=== PATIENT | female | born 1990 | race African-American/Black ===

== ENCOUNTER 2023-05-30 14:08 | Outpatient (REF) | payer OTHER, SELFPAY ==
[2023-05-31 05:21] LABS: CT PCR NOT DETECTED (Not Detect.); NG PCR NOT DETECTED (Not Detect.)
[2023-05-31 15:20] LABS: BV Int Neg Control Negative (Negative); BV Int Pos Control Positive (Positive)
== END 2023-05-30 14:09 | disposition home or self-care (01) ==
LOC: HO.CHCLNP 14:08
PROVIDERS: Visit Provider General Practice
DX: B37.31 Acute candidiasis of vulva and vagina (principal)
CPT/HCPCS: 0353U; 87480; 87510; 87660

== ENCOUNTER 2024-10-31 08:18 | Outpatient (REF) | payer OTHER, SELFPAY ==
[2024-10-31 14:02] LABS: MANUAL DIFF FLAG NO
[2024-10-31 14:05] LABS: Basophils Absolute Auto 0.1 X10*3/uL (0.0-0.2); Basophils Percent Auto 1.1 % (0-2); Eosinophils Absolute Auto 0.1 X10*3/uL (0.0-0.4); Hematocrit 38.2 % (37.0-47.0); Hemoglobin 12.9 g/dl (12.0-16.0); Imm Gran Abs Auto 0.03 X10*3/uL (0.00-0.03); Imm Gran Pct Auto 0.4 % (0.0-0.4); Lymphocytes Absolute Auto 1.8 X10*3/uL (1.2-4.9); Lymphocytes Percent Auto 25.3 % (20-40); Mean Corpuscular HGB Conc 33.8 g/dl (31.0-35.0); Mean Corpuscular Hemoglobin 30.7 pg (27.0-33.0); Mean Platelet Volume 9.4 fL (9.4-12.3); Monocytes Absolute Auto 0.6 X10*3/uL (0.1-1.2); Neutrophils Absolute Auto 4.6 x10*3/uL (2.0-8.3); Neutrophils Percent Auto 64.2 % (45-73); Platelet Count 271 X10*3/uL (160-400); Red Cell Distribution Width 12.6 % (11.0-16.0); White Blood Count 7.2 X10*3/uL (4.8-10.8)
[2024-10-31 14:29] LABS: Alanine Aminotransferase 14 U/L (0-31); Albumin Level 4.1 g/dL (3.5-5.0); Alkaline Phosphatase 41 U/L (39-117); Anion Gap 9 (12-20); Aspartate Amino Transferase 23 U/L (5-31); Bilirubin Total 0.4 mg/dL (0.0-1.0); Blood Urea Nitrogen 9 mg/dL (9-16); C Reactive Protein < 0.04 mg/dL (< or = 0.50); Calcium 8.3 mg/dL (8.4-10.2); Carbon Dioxide 22 mmol/L (22-29); Chloride 110 mmol/L (96-108); Estimated Glomerular Filt Rate > 60; Glucose Random 82 mg/dL (60-115); Potassium 3.8 mmol/L (3.3-5.1); Sodium 137 mmol/L (135-145); Total Protein 6.9 g/dL (6.5-8.0)
[2024-10-31 14:43] LABS: Erythrocyte Sedimentation Rate 4 MM/HR (0-20)
[2024-10-31 14:45] LABS: TSH reflex Free T4 0.41 uIU/mL (0.32-4.0)
[2024-11-05 12:33] LABS: Anti Nuclear Antibody Screen POSITIVE (NEGATIVE)
== END 2024-10-31 08:19 | disposition home or self-care (01) ==
LOC: HO.CHCLDS 08:18
PROVIDERS: Visit Provider Internal Medicine
DX: R25.2 Cramp and spasm (principal)
CPT/HCPCS: 36415; 80053; 82550; 84443; 85025; 85652; 86038; 86039; 86140

== ENCOUNTER 2024-12-11 09:25 | Outpatient (REF) | payer OTHER, SELFPAY ==
--- OUTSIDE RECORDS SUMMARY | 2024-12-11 10:12 | XMS_ITS | Clinical Summary ---
Author Organization [facility] ity Address [id number] [place] [id number] Care Team Providers Care Rn Admit Name Role Phone Matilda Echols MD Primary Care Provider [phone] Social History Tobacco Use Types Packs/Day Years Used Date Smoking Tobacco: Never Assessed Comments Unknown Sex and Gender Information Value Date Recorded Sex Assigned at Not on file Legal Sex Female 4:38 AM EST Gender Identity Not on file Sexual Orientation Not on file Plan of Treatment Health Maintenance Due Date Last Done Comments Cervical Cancer Screening: Pap Smear 2010 COVID-19 Vaccine ( season) 2024 Influenza Vaccine (#1) 2024 DTaP,Tdap,and Td Vaccines (8 - Td or Tdap) 11/23/2027 11/23/2017, 11/06/2000, 04/21/1999, Additional history exists HIB Vaccines Completed 03/22/1991 IPV Vaccines Completed 04/21/1994, 10/1990, 03/22/1991, Additional history exists Hepatitis B Vaccines Completed 08/30/2000, 06/22/1998, 04/21/1997, Additional history exists MMR Vaccines Completed 11/06/2000, 03/22/1991 HPV Vaccines Completed 07/13/2008, 02/20, 01/07/2008 Varicella Vaccines Aged Out 05/06/2012 No longer eligible based on patient's age to complete this topic Hepatitis A Vaccines Aged Out No long er eligible based on patient's age to complete this topic Meningococcal ACWY Vaccine Aged Out N o longer eligible based on patient's age to complete this topic Meningococcal B Vacine Aged Out No lo nger eligible based on patient's age to complete this topic Pneumococcal Vaccine: Pediatrics (0 to 5 Years) and At-Risk Patients (6 to 64 Years) Aged Out No longer eligible based on patient's age to complete this topic RSV Immunization Patients Under 20 months Aged Out No longer eligible based on patient's age to complete this topic Care Teams Rn Admit Relationship Specialty Start Date End Date Matilda Echols MD [address] [place] [address] PCP - General Internal Medicine 10/11/15
--- OUTSIDE RECORDS SUMMARY | 2024-12-11 10:12 | XMS_ITS | Encounter Summary ---
Author Organization [facility] Address [facility] [place] [address] Care Team Providers Care Verification Engineer Name Role Phone Matilda Echols MD Primary Care Provider [phone] Encounter Details Date Type Department Care Team Description 11/23/2015 Linen Worker Report Medical Records [address] [place] [address] Cirilo Stephens MD Social History Tobacco Use Types Packs/Day Years Used Date Smoking Tobacco: Never Alcohol Use Standard Drinks/Week Comments Not Asked 0 (1 standard drink = 0.6 oz pur e alcohol) Sex Assigned at Date Recorded Not on file documented as of this encounter Plan of Treatment Not on file documented as of this encounter Visit Diagnoses Not on filedocumented in this encounter Care Teams Verification Engineer Relationship Specialty Start Date End Date Matilda Echols MD [address] [place] [phone] PCP - General Internal Medicine 10/11/15 documented as of this encounter
--- OUTSIDE RECORDS SUMMARY | 2024-12-11 10:12 | XMS_ITS | Encounter Summary ---
Author Organization [facility] Address [address] [place] [address] 7t [place] [address] Care Team Providers Care Manager Manufacturing Name Role Phone Hilda Porter MD Primary Care Provider [phone] Encounter Details Date Type Department Care Team ([facility] st Contact Info) Description 11/12/2024 Orders Only [facility] [address] [place], [place] [phone] Hilda Porter MD [address] [place] [address] Social History Tobacco Use Types Packs/Day Years Used Date Smoking Tobacco: Never Passive Smoke Exposure: Never Smokeless Tobacco: Never Comments Unknown Sex and Gender Information Value Date Recorded Sex Assigned at Female 08/21/2022 10:15 AM EDT Legal Sex Female 10:15 AM EDT Gender Identity Female 08/21/2022 10:15 AM EDT Sexual Orientation Straight 08/21/2022 10 :15 AM EDT documented as of this encounter Plan of Treatment Not on file documented as of this encounter Visit Diagnoses Not on filedocumented in this encounter Care Teams Manager Manufacturing Relationship Specialty Start Date End Date Hilda Porter MD [address] [place] [address] PCP - General Family Medicine 04/17/16 documented as of this encounter
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
--- OUTSIDE RECORDS SUMMARY | 2024-12-11 10:12 | XMS_ITS | Encounter Summary ---
Author Organization [email or web address] Address [address] [facility] 7[address] [place] [address] Care Team Providers Care Key Cutter Name Role Phone Hilda Porter MD Primary Care Provider [phone] Encounter Details Date Type Department Care Team (Latest Contact Info) Description 12/11/2024 Travel Social History Tobacco Use Types Packs/Day Years Used Date Smoking Tobacco: Never Passive Smoke Exposure: Never Smokeless Tobacco: Never Depression Answer Date Recorded Patient Health Questionnaire-9 Score 0 12/11/2024 Patient Health Questionnaire-9 Score 0 12/11/2024 Last PHQ-9: Questionnaire Data Not on file 0 12/11/2024 Housing Stability Answer Date Recorded What is your housing situation today? I have jalen hess 11/27/[address] you li ve. Do you have problems with any of the following? None of the above 11/27/2024 Food Insecurity Answer Date Recorded Within the past 12 months, y ou worried that your food would run out before you got money to buy more: Never True 11/27/2024 Within the past 12 months,th e food you bought just didn't last and you didn't have enough money to get more: Never True 03/2025 Transportation Answer Date Recorded In the past 12 months, has l ack of transportation kept you from medical appts, meetings, work or from getting things needed for daily living? No 11/27/2024 Utilities Answer Date Recorded In the past 12 months, has t he electric, gas, oil or water company threatened to shut off services in your home? No 11/27/2024 Depression Answer Date Recorded Patient Health Questionnaire-2 Score 0 12/11/2024 Internet Access Answer Date Recorded Internet Access Q1 Yes 11/27/2024 Internet Access Q2 Not on file 11/27/2024 Comments Unknown Sex and Gender Information Value Date Recorded Sex Assigned at Female 08/21/2022 10:15 AM EDT Legal Sex Female 10:15 AM EDT Gender Identity Female 08/21/2022 10:15 AM EDT Sexual Orientation Straight 08/21/2022 10 :15 AM EDT documented as of this encounter Plan of Treatment Not on file documented as of this encounter Visit Diagnoses Not on filedocumented in this encounter Additional Health Concerns Assessment Noted Time PHQ-9 Depression Total Score: 0 12/11/19 25 8:59 AM EST documented as of this encounter Care Teams Key Cutter Relationship Specialty Start Date End Date Hilda Porter MD [address] [place] [phone] PCP - General Family Medicine 04/17/16 documented as of this encounter
--- OUTSIDE RECORDS SUMMARY | 2024-12-11 10:12 | XMS_ITS | Encounter Summary ---
Author Organization [facility] Address [address] [place] [address] 7t [place] [address] Care Team Providers Care Fisheries Officer Name Role Phone Hilda Porter MD Primary Care Provider [phone] Reason for Visit * Reason Onset Date Comments Referral 11/11/2024 Encounter Details Date Type Department Care Team ([facility] st Contact Info) Description 11/11/2024 Telephone [facility] [address] [place] [address] Hilda Porter MD [address] [place] [address] Referral Social History Tobacco Use Types Packs/Day Years Used Date Smoking Tobacco: Never Passive Smoke Exposure: Never Smokeless Tobacco: Never Comments Unknown Sex and Gender Information Value Date Recorded Sex Assigned at Female 08/21/2022 10:15 AM EDT Legal Sex Female 10:15 AM EDT Gender Identity Female 08/21/2022 10:15 AM EDT Sexual Orientation Straight 08/21/2022 10 :15 AM EDT documented as of this encounter Miscellaneous Notes * Telephone Encounter - Hilda Porter MD - 11/13/2024 11:45 AM EST Referred * Telephone Encounter - Camelia Souza - 11/12/2024 8:58 AM EST Rheumatology referral cancelled due to patient needing to be referred to a neurologist. Please sendneurology referral. Thank you. * Telephone Encounter - Ara Lealstephanie Alonso - 11/11/2024 2:53 PM EST Tc from pt stating facility she was referral called her to let her know need Neurologist referral. Any questions contact pt. [phone] documented in this encounter Plan of Treatment Not on file documented as of this encounter Visit Diagnoses Not on filedocumented in this encounter Care Teams Fisheries Officer Relationship Specialty Start Date End Date Hilda Porter MD [address] [place] [address] PCP - General Family Medicine 04/17/16 documented as of this encounter
--- OUTSIDE RECORDS SUMMARY | 2024-12-11 10:12 | XMS_ITS | Encounter Summary ---
Author Organization [facility] Address [facility] [place] [address] Care Team Providers Care Resident Caregiver Name Role Phone Matilda Echols MD Primary Care Provider [phone] Encounter Details Date Type Department Care Team Description 02/16/2018 Transfer Records Medical Records [address] [place] [id number] Abstract, Provider Social History Tobacco Use Types Packs/Day Years [...] on filedocumented in this encounter Care Teams Resident Caregiver Relationship Specialty Start Date End Date Matilda Echols MD [address] [place] [address] PCP - General Internal Medicine 10/11/15 documented as of this encounter
--- OUTSIDE RECORDS SUMMARY | 2024-12-11 10:12 | XMS_ITS | Encounter Summary ---
Author Organization [employer] Address [address] [facility] 7t [place] [address] Care Team Providers Care Plc Technician Name Role Phone Hilda Porter MD Primary Care Provider Reason for Visit * Reason Comments Pre-visit Planning SDOH screening negat dora and tobacco screening negative Encounter Details Date Type Department Care Team ([facility] st Contact Info) Description 11/27/2024 Patient Outreach [facility] [address] [place] [address] Hilda Porter MD [address] [place] [address] Pre-visit Planning (SDOH screening negative and tobacco screening negative) Social History Tobacco Use Types Packs/Day Years Used Date Smoking Tobacco: Never Passive Smoke Exposure: Never Smokeless Tobacco: Never Housing Stability Answer Date Recorded What is [...] off services in your home? No 11/27/2024 Internet Access Answer Date Recorded Internet Access Q1 Yes 11/27/2024 Internet Access Q2 Not on file 11/27/2024 Comments Unknown Sex and Gender Information Value Date Recorded Sex Assigned at Female 08/21/2022 10:15 AM EDT Legal Sex Female 10:15 AM EDT Gender Identity Female 08/21/2022 10:15 AM EDT Sexual Orientation Straight 08/21/2022 10 :15 AM EDT documented as of this encounter Progress Notes * Allison Frank - 11/27/2024 10:12 AM EST CC Allison placed successful outbound call to patient for pre-visit planning. Patient name and confirmed. Patient confirms appt date and time, and has transportation. Biggest concern for appointment at this time is none Patient advised to bring to appointment a photo id and insurance card. Appropriate screenings completed in anticipation of appointment. documented in this encounter Plan of Treatment Not on file documented as of this encounter Visit Diagnoses Not on filedocumented in this encounter Care Teams Plc Technician Relationship Specialty Start Date End Date Hilda Porter MD [address] [place] [id number] PCP - General Family Medicine 04/17/16 documented as of this encounter
--- OUTSIDE RECORDS SUMMARY | 2024-12-11 10:12 | XMS_ITS | Encounter Summary ---
Author Organization [employer] Address [address] [place] [address] 7[address] [place] [address] Care Team Providers Care Tile Layer Name Role Phone Hilda Porter MD Primary Care Provider [phone] Reason for Visit * Reason Onset Date Comments Results 11/11/2024 Encounter Details Date Type Department Care Team ([facility] st Contact Info) Description 11/11/2024 Telephone [facility] MED & PEDS [address] [place] [address] Senait Clarke RN Results Social History Tobacco Use Types Packs/Day Years [...] Encounter - Hilda Porter MD - 11/13/2024 11:46 AM EST Pt also has Positive ELIZ .Hence needs to be seen by Coffee Shop Aide * Telephone Encounter - Senait Clarke RN - 11/11/2024 1:26 PM EST TC placed to pt to advise of positive ELIZ blood work results below. Pt informed that referral placed to rheumatology had been placed due to these findings and the arthritis treatment center will be calling with an appt date and time. Pt stated understanding and had no further questions or concerns.While on the call the pt asked for a refill on the Ibuprofen 800 MG tablet. Prescription inA2023 and pt will need a new one place. ----- Message from Irais Turner MD sent at 11/06/2024 5:08 PM EST ----- Please inform Nancie that I have just seen her blood test results. Her ELIZ test was positive at afairly high level, so her symptoms might be due to an autoimmune condition. I am referring her to arheumatologist, a doctor who specializes in evaluating people who may have autoimmune conditions. * Telephone Encounter - Jessica Frank - 11/11/2024 12:47 PM EST Tc from pt returning call. * Telephone Encounter - Senait Clarke RN - 11/11/2024 9:12 AM EST TC placed to pt and LVM to call back the office in regards to result message below ----- Message from Irais Turner MD sent at 11/06/2024 5:08 PM EST ----- Please inform Nancie that I have just seen her blood test results. Her ELIZ test was positive at afairly high level, so her symptoms might be due to an autoimmune condition. I am referring her to arheumatologist, a doctor who specializes in evaluating people who may have autoimmune conditions. documented in this encounter Plan of Treatment Not on file documented as of this encounter Visit Diagnoses Not on filedocumented in this encounter Care Teams Tile Layer Relationship Specialty Start Date End Date Hilda Porter MD [address] [place] [phone] PCP - General Family Medicine 04/17/16 documented as of this encounter
--- OUTSIDE RECORDS SUMMARY | 2024-12-11 10:12 | XMS_ITS | Encounter Summary ---
Author Organization [employer] Address [address] [place] [address] 7t [place] [address] Care Team Providers Care Felt Machine Mechanic Name Role Phone Hilda Porter MD Primary Care Provider [phone] Reason for Visit * Reason Comments Annual Exam Encounter Details Date Type Department Care Team ([facility] st Contact Info) Description 12/11/2024 9:00 AM EST Office Visit [facility] MED & PEDS [address] [place], [place] [phone] Hilda Porter MD [address] [place] [address] ELIZ positive (Primary Dx); Screen for STD (sexually transmitted disease); Encounter for annual wellness visit Social History Tobacco Use Types Packs/Day Years [...] AM EDT documented as of this encounter Last Filed Vital Signs Vital Sign Reading Time Taken Comments Blood Pressure 118/73 12/11/2024 8:58 AM EST Pulse 82 12/11/2024 8:58 AM EST Temperature 36.4 ??C (97.6 ??F) 12/11/2024 8:58 AM ES T Respiratory Rate 20 12/11/2024 8:58 AM EST Oxygen Saturation 98% 12/11/2024 8:58 AM EST Inhaled Oxygen Concentration - - Weight 57.5 kg (126 lb 12.8 oz) 12/11/2024 8:58 AM EST Height 162.6 cm (5' 4 ) 12/11/2024 8:58 AM EST Body Mass Index 21.77 12/11/2024 8:58 AM EST documented in this encounter Progress Notes * Hilda Porter MD - 12/11/2024 9:00 AM EST Subjective Patient ID: Nancie Romero is a 34 y.o. female who presents for Annual Exam. Well Adult Physical Patient here for a comprehensive physical exam.The patient reports no problems Do you take any herbs or supplements that were not prescribed by a doctor? no Are you taking calcium supplements? no Are you taking aspirin daily? no Arthritis Presents for follow-up visit. She complains of pain. The symptoms have been stable. Affected locations include the right knee. Her pain is at a severity of 4/10. Review of Systems Constitutional: Negative. Respiratory: Negative. Negative for shortness of breath. Cardiovascular: Negative for chest pain and palpitations. Gastrointestinal: Negative. Genitourinary: Negative. Musculoskeletal: Positive for arthritis. Negative for neck pain. Neurological: Negative for headaches. Objective Physical Exam Constitutional: Appearance: Normal appearance. HENT: Head: Normocephalic and atraumatic. Right Ear: Tympanic membrane normal. Left Ear: Tympanic membrane normal. Mouth/Throat: Mouth: Mucous membranes are moist. Eyes: Pupils: Pupils are equal, round, and reactive to light. Cardiovascular: Rate and Rhythm: Normal rate and regular rhythm. Pulmonary: Effort: Pulmonary effort is normal. Breath sounds: Normal breath sounds. Abdominal: General: Abdomen is flat. Palpations: Abdomen is soft. Musculoskeletal: General: Normal range of motion. Skin: General: Skin is warm. Neurological: General: No focal deficit present. Mental Status: She is alert. Psychiatric: Mood and Affect: Mood normal. Behavior: Behavior normal. Assessment/Plan Diagnoses and all orders for this visit: ELIZ positive Comments: awaiting Rheum consult Advised daily Vit D and Turmeric Advised to stay active Orders: - Rheumatoid Factor; Future - Vitamin D, 25-Hydroxy, Total, Immunoassay; Future Screen for STD (sexually transmitted disease) - Hepatitis C Antibody with Reflex to HCV, RNA, Quantitative, Real-Time PCR; Future - HIV-1/2 Antigen and Antibodies, Fourth Generation, with Reflexes; Future Encounter for annual wellness visit Other orders - polyethylene glycol, PEG, 3350 (MiraLax) 17 GM/SCOOP powder; Take 17 g by mouth Once per day for 3 days. - ibuprofen 800 MG tablet; Take 1 tablet (800 mg) by mouth with breakfast and with evening meal. documented in this encounter Plan of Treatment Scheduled Orders Name Type Priority Associated Diagnoses Orde r Schedule Rheumatoid Factor Lab Routine ELIZ positive Expected: 12/11/2024, Expires: 12/11/2025 Hepatitis C Antibody with Reflex to HCV, RNA, Quantitative, Real-Time PCR Lab Routine Screen for STD (sexually transmitted disease) Expected: 12/11/2024, Expires: 12/11/2025 HIV-1/2 Antigen and Antibodies, Fourth Generation, with Reflexes Lab Routine Screen for STD (sexually transmitted disease) Expected: 12/11/2024 (Approximate), Expires: 12/11/2025 Vitamin D, 25-Hydroxy, Total, Immunoassay Lab Routine ELIZ positive Expected: 12/11/2024 (Approximate), Expires: 12/11/2025 documented as of this encounter Visit Diagnoses Diagnosis ELIZ positive- Primary Screen for STD (sexually transmitted disease) Screening examination for venereal disease Encounter for annual wellness visit documented in this encounter Additional Health Concerns Assessment Noted Time PHQ-9 Depression Total Score: 0 12/11/19 25 8:59 AM EST documented as of this encounter Care Teams Felt Machine Mechanic Relationship Specialty Start Date End Date Hilda Porter MD [address] [place] [phone] PCP - General Family Medicine 04/17/16 documented as of this encounter
--- OUTSIDE RECORDS SUMMARY | 2024-12-11 10:12 | XMS_ITS | Encounter Summary ---
Author Organization [employer] Address [address] [place] [address] [address] [place] [address] Care Team Providers Care Drag Seiner Name Role Phone Hilda Porter MD Primary Care Provider [phone] Reason for Visit * Reason Onset Date Comments Medication Question 11/12/2024 Encounter Details Date Type Department Care Team ([facility] Contact Info) Description 11/12/2024 Telephone [facility] CH[facility] MED & PEDS [address] [place], [place] [phone] Hilda Porter MD [address] [place] [address] Medication Question Social History Tobacco Use Types Packs/Day Years [...] encounter Miscellaneous Notes * Telephone Encounter - Denise Anderson RN - 11/13/2024 12:17 PM EST T/C to pt. Advised that pcp placed referral and sent rx for pre-jean vitamins as requested. * Telephone Encounter - Hilda Porter MD - 11/13/2024 11:44 AM EST Sent * Telephone Encounter - Denise Anderson RN - 11/13/2024 11:37 AM EST T/C returned to pt. Pt states she is not trying to get . Reports that she received a reportthat something is wrong is with her bones. Pt requesting a rx for pre-jean vitamins as she heard that this was best for women. Advised pt pre-jean vitamins are available OTC and that request will be sent to pcp for review. * Telephone Encounter - Jessica Frank - 11/12/2024 12:25 PM EST Tc from pt requesting to see if pcp can prescribe vitamin. Pt would prefer vitamins. Any questions please contact pt . documented in this encounter Plan of Treatment Not on file documented as of this encounter Visit Diagnoses Not on filedocumented in this encounter Care Teams Drag Seiner Relationship Specialty Start Date End Date Hilda Porter MD [address] [place] [phone] PCP - General Family Medicine 04/17/16 documented as of this encounter
--- OUTSIDE RECORDS SUMMARY | 2024-12-11 10:13 | XMS_ITS | Encounter Summary ---
Author Organization [employer] Address [address] [place] [address] 7t [place] [address] Care Team Providers Care Media Planner / Buyer Name Role Phone Hilda Porter MD Primary Care Provider [phone] Encounter Details Date Type Department Care Team ([facility] st Contact Info) Description 11/13/2024 Orders Only [facility] CHC MED & PEDS [address] [place], [place] [phone] Hilda Porter MD [address] [place] [address] Social History Tobacco Use Types Packs/Day Years [...] on filedocumented in this encounter Care Teams Media Planner / Buyer Relationship Specialty Start Date End Date Hilda Porter MD [address] [place] [phone] PCP - General Family Medicine 04/17/16 documented as of this encounter
--- OUTSIDE RECORDS SUMMARY | 2024-12-11 10:13 | XMS_ITS | Clinical Summary ---
Author Organization [employer] Address [address] [place] [address] 7t [place] [address] Care Team Providers Care Logging Truck Driver Name Role Phone Hilda Porter MD Primary Care Provider [phone] Allergies No known active allergies Medications multivitamin () 27-0.8 MG tablet Take 1 tablet by mouth Once per day. 30 tablet 3 11/13/19 25 Active polyethylene glycol, PEG, 3350 (MiraLax) 17 GM/SCOOP powder Take 17 g by mouth Once per day for 3 days. 527 g 2 12/11/19 25 025 Active ibuprofen 800 MG tablet Take 1 tablet (800 mg) by mouth with breakfast and with evening meal. 60 tablet 2 12/11/19 25 Active ibuprofen 800 MG tablet TAKE ONE TABLET BY MOUTH TWICE DAILY WITH FOOD 60 tablet 2 05/31/20 23 025 Discontinued(Re order (will not trigger notification to Pharmacy)) ibuprofen 800 MG tablet Take 1 tablet (800 mg) by mouth with breakfast and with evening meal. 60 tablet 2 11/12/19 25 025 Discontinued(Re order (will not trigger notification to Pharmacy)) Active Problems No known active problems Encounters Date Type Department Care Team Description 12/11/2024 9:00 AM EST Office Visit [facility] CHC MED & PEDS [address] [place], [place] [phone] Hilda Porter MD ELIZ positive (Primary Dx); Screen for STD (sexually transmitted disease); Encounter for annual wellness visit 12/11/2024 Travel 11/27/2024 Patient Outreach [facility] MEDICINE [address] [place], [place] [phone] Hilda Porter MD Pre-visit Planning (SDOH screening negative and tobacco screening negative) 11/13/2024 Orders Only [facility] CHC MED & PEDS [address] [place] [address] Hilda Porter MD Positive ELIZ (antinuclear antibody) (Primary Dx) 11/13/2024 Orders Only [facility] MED & PEDS [address] [place] [address] Hilda Porter MD Weakness of both lower extremities (Primary Dx) 11/13/2024 Orders Only [facility] MED & PEDS [address] [place] [address] Hilda Porter MD 11/12/2024 Telephone [facility] MED & PEDS [address] [place] [address] Hilda Porter MD Medication Question 11/12/2024 Orders Only [facility] MED & PEDS [address] [place] [address] Hilda Porter MD 11/11/[address] [address] Hilda Porter MD Referral 11/11/2024 Telephone [facility] MED & PEDS [address] [place] [address] Senait Clarke, JOANA Results 11/06/2024 Orders Only [facility] [address] [place] [address] Irais Turner MD Weakness of both lower extremities (Primary Dx) 11/04/[address] [address] Hilda Porter MD Results 10/30/2024 3:20 PM EST Office Visit [facility] MED & PEDS [address] [place] [address] Irais Turner MD Muscle cramps (Primary Dx); Weakness of both lower extremities 10/30/2024 Travel 10/30/[address] [address] Hilda Porter MD Nurse Triage from Last 3 Months Social History Tobacco Use Types Packs/Day Years Used Date Smoking Tobacco: Never Passive Smoke Exposure: Never Smokeless Tobacco: Never Tobacco Cessation:Counseling Given: Not Answered Depression Answer Date Recorded Patient Health Questionnaire-9 [...] Orientation Straight 08/21/2022 10 :15 AM EDT Last Filed Vital Signs Vital Sign Reading [...] Mass Index 21.77 12/11/2024 8:58 AM EST Plan of Treatment Health Maintenance Due Date Last Done Comments HIV Screening 1989 Family Planning (PISQ) 2004 Hepatitis C Screening 2007 Influenza Vaccine (#1) 2025 09/06/2020 Postp oned from 06/22/2024 (Patient Refused) Pap Smear 05/02/2025 05/02/2022 Tobacco Screening 10/30/2025 10/30/2024 SDOH Screening 11/27/2025 11/27/2024 Alcohol/Substance Use Screening 12/11/2025 12/11/2024 COVID-19 Vaccine ( season) 2025 03/30/2021, 02/19/2021 Postponed from 06/22/2024 (Patient Refused) Depression Screening 12/11/2025 12/11/2024, 12/11/19 Cervical Cancer Screening 05/02/2027 HPV/Cotest 05/02/2027 05/02/2022 DTaP/Tdap/Td Vaccines (7 - Td or Tdap) 11/23/2027 11/23/2017, 03/10/2015, 03/10/2015, Additional history exists Zoster Vaccines (1 of 2) 2039 RSV Patients and Patients Aged 60 years or older (1 - 1-dose 75+ series) 2064 HIB Vaccines Completed 03/22/1991, 03/22/1991 IPV Vaccines Completed 04/21/1994, 0710/1993, 03/22/1991, Additional history exists Hepatitis B Vaccines Completed 08/30/2000, 08/30/2000, 06/22/1998, Additional history exists HPV Vaccines Completed 07/13/2008, 02/20, 01/07/2008 Hepatitis A Vaccines Aged Out No long er eligible based on patient's age to complete this topic Meningococcal Vaccine Aged Out No torres elvie eligible based on patient's age to complete this topic Pneumococcal Vaccine: Pediatrics (0 to 5 Years) and At-Risk Patients (6 to 49) Years) Aged Out No longer eligible based on patient's age to complete this topic RSV under 20 months Aged Out No longe r eligible based on patient's age to complete this topic Rotavirus Vaccines Aged Out No longer eligible based on patient's age to complete this topic Procedures Procedure Name Priority Date/Time Associated Diagnosis Comments CREATINE KINASE, TOTAL Routine 8:20 AM EST Muscle cramps ELIZ SCREEN, IFA, W/REFL TITER AND PATTERN Routine 10/31/2024 8:20 AM EST Muscle cramps C-REACTIVE PROTEIN Routine 10/31/2024 8: 20 AM EST Muscle cramps SED RATE BY MODIFIED WESTERGREN Routine 10/31/2024 8:20 AM EST Muscle cramps TSH W/REFLEX TO FT4 Routine 10/31/2024 8 :20 AM EST Muscle cramps COMPREHENSIVE METABOLIC PANEL Routine 10/31/2024 8:20 AM EST Muscle cramps CBC WITH AUTO DIFFERENTIAL Routine 10/31/2024 8:20 AM EST Muscle cramps THINPREP IMAGING PAP AND HPV MRNA E6/E7, WITH CT/NG, TRICHOMONAS Routine 05/02/2022 11:12 AM EDT from Last 3 Months or Most Recently Relevant to Health Maintenance Results * TSH W/Reflex to FT4 (10/31/2024 8:20 AM EST) TSH reflex Free T4 0.41 0.32 - 4.0 uIU/mL [facility] Blood Venous blood specimen / Unknown 10/31/2024 8:20 AM EST 10/31/2024 1:59 PM EST us Irais Turner MD LAB BLOOD ORDERABLES Final Re sult [facility] [address] [place] [phone] * CBC auto differential (10/31/2024 8:20 AM EST) White Blood Count 7.2 4.8 - 10.8 X10*3/uL [facility] Red Blood Count 4.20 4.20 - 5.50 X10*6/uL [facility] Hemoglobin 12.9 12.0 - 16.0 g/dl [facility] Hematocrit 38.2 37.0 - 47.0 % [facility] Mean Corpuscular Volume 91.0 80.0 - 98.0 fL [facility] Mean Corpuscular Hemoglobin 30.7 27.0 - 33.0 pg [facility] Mean Corpuscular HGB Conc 33.8 31.0 - 35.0 g/dl [facility] Red Cell Distribution Width 12.6 11.0 - 16.0 % [facility] Platelet Count 271 160 - 400 X10*3/uL [facility] Mean Platelet Volume 9.4 9.4 - 12.3 fL [facility] Neutrophils Percent Auto 64.2 45 - 73 % [facility] Imm Gran Pct Auto 0.4 0.0 - 0.4 % [facility] Lymphocytes Percent Auto 25.3 20 - 40 % [facility] Monocytes Percent Auto 8.0 2 - 11 % [facility] Eosinophils Percent Auto 1.0 0 - 4 % [facility] Basophils Percent Auto 1.1 0 - 2 % [facility] NRBC Pct Auto 0.0 0.0 - 0.2 /100WBC [facility] Neutrophils Absolute Auto 4.6 2.0 - 8.3 x10*3/uL [facility] Imm Gran Abs Auto 0.03 0.00 - 0.03 X10*3/uL [facility] Lymphocytes Absolute Auto 1.8 1.2 - 4.9 X10*3/uL [facility] Monocytes Absolute Auto 0.6 0.1 - 1.2 X10*3/uL [facility] Eosinophils Absolute Auto 0.1 0.0 - 0.4 X10*3/uL [facility] Basophils Absolute Auto 0.1 0.0 - 0.2 X10*3/uL [facility] NRBC Abs Auto 0.000 0.0 - 0.012 X10*3/uL [facility] Blood Venous blood specimen / Unknown 10/31/2024 8:20 AM EST 10/31/2024 1:59 PM EST us Irais Turner MD LAB BLOOD ORDERABLES Final Re sult [facility] [address] [place] [address] [phone] * Sed Rate by Modified Estrellitaren (10/31/2024 8:20 AM EST) Erythrocyte Sedimentation Rate 4 0 - 20 MM/HR [facility] Comment:Patients with polycy themia and many hemoglobin abnormalitiesmay have depressed sed rates whereas patients with anemiamay have elevated sed rates. Blood Venous blood specimen / Unknown 10/31/2024 8:20 AM EST 10/31/2024 1:59 PM EST us Irais Turner MD LAB BLOOD ORDERABLES Final Re sult Performing Organization Address [facility]/ZIP Co de Phone Number [facility] [address] [place] [address] [phone] * C-reactive Protein (10/31/2024 8:20 AM EST) C Reactive Protein <0.04 < or = 0.50 mg/dL [facility] Blood Venous blood specimen / Unknown 10/31/2024 8:20 AM EST 10/31/2024 1:59 PM EST us Irais Turner MD LAB BLOOD ORDERABLES Final Re sult [facility] [address] [place] [phone] * (ABNORMAL) ELIZ Screen,IFA, with Reflex to Titer and Pattern (10/31/2024 8:20 AM EST) Anti Nuclear Antibody Screen POSITIVE (A) NEGATIVE [facility] Comment:ELIZ IFA is a first l ine screen for detecting thepresence of up to approximately 150 autoantibodies invarious autoimmune diseases. A positive ELIZ IFA resultis suggestive of autoimmune disease and reflexes totiter and pattern. Further laboratory testing may beconsidered if clinically indicated.For additional information, please refer tohttp://education.159.com/faq/ATP770(This link is being provided for informational/educational purposes only.) ELIZ Titer 1:160(A) titer [facility] Comment:Reference Range <1:4 0 Negative 1:40-1:80 Low Antibody Level >1:80 Elevated Antibody Level ELIZ Pattern (A) [facility] Comment:Nuclear, Dense Fine Speckled Abnormal Flag: ADense fine speckled pattern is seen in normalindividuals and rarely associated with systemic lupuserythematosis (SLE), Sjogren's syndrome and systemicsclerosis.AC-2: Dense Fine SpeckledInternational Consensus on ELIZ Patterns(https://doi.org/10.1515/gzgf-4047-5891)THIS TEST WAS PERFORMED AT:[facility] [place] [phone] PEOPLES MD ELIZ TITER 2 (REF LAB) [facility] ELIZ Pattern 2 [facility] ELIZ TITER 3 [facility] ELIZ PATTERN 3 [facility] Blood Venous blood specimen / Unknown 10/31/2024 8:20 AM EST 10/31/2024 1:59 PM EST us Irais Turner MD LAB BLOOD ORDERABLES Final Re sult [facility] [address] [place] [phone] [phone] * Creatine Kinase, Total (10/31/2024 8:20 AM EST) Creatine Kinase Total 83 26 - 140 U/L [facility] Blood Venous blood specimen / Unknown 10/31/2024 8:20 AM EST 10/31/2024 1:59 PM EST us Irais Turner MD LAB BLOOD ORDERABLES Final Re sult [facility] [address] [place] [phone] * (ABNORMAL) Comprehensive Metabolic Panel (10/31/2024 8:20 AM EST) Sodium 137 135 - 145 mmol/L [facility] Potassium 3.8 3.3 - 5.1 mmol/L [facility] Chloride 110(H) 96 - 108 mmol/L [facility] Carbon Dioxide 22 22 - 29 mmol/L [facility] Anion Gap 9(L) 12 - 20 [facility] Urea Nitrogen (BUN) 9 9 - 16 mg/dL [facility] Creatinine, Serum 0.75 0.5 - 1.4 mg/dL [facility] Estimated Glomerular Filt Rate >60 [facility] Comment:Chronic Kidney Disea se: Estimated GFR < 60 mL/min/1.78d5Jicicp Kidney Disease: Estimated GFR < 15 mL/min/1.73m2 Glucose 82 60 - 115 mg/dL [facility] Calcium 8.3(L) 8.4 - 10.2 mg/dL [facility] Bilirubin, Total 0.4 0.0 - 1.0 mg/dL [facility] Aspartate Amino Transferase 23 5 - 31 U/L [facility] Alanine Aminotransferase 14 0 - 31 U/L [facility] Total Protein 6.9 6.5 - 8.0 g/dL [facility] Albumin Level 4.1 3.5 - 5.0 g/dL [facility] Alkaline Phosphatase 41 39 - 117 U/L [facility] Blood Venous blood specimen / Unknown 10/31/2024 8:20 AM EST 10/31/2024 1:59 PM EST us Irais Turner MD LAB BLOOD ORDERABLES Final Re sult [facility] [address] [place] [phone] [phone] * THINPREP TIS PAP AND HPV mRNA E6/E7, CT/NG, TRICH (05/02/2022 11:12 AM EDT) Chlamydia trachomatis RNA, TMA, Urogenital NOT DETECTED NOT DETECTED [facility] Clinical Information: None given [facility] COMMENT SEE COMMENT [facility] Comment: The analytical performance characteristics of this assay, when used to test SurePath(TM) specimens have been determined by [email or web address]. The modifications have not been cleared or approved by the FDA. This assay has been validated pursuant to the CLIA regulations and is used for clinical purposes. ?? For additional information, please refer to https://education.[employer] (InsideTracker)/faq/YPT133 (This link is being provided for information/ educational purposes only.) ?? COMMENT SEE COMMENT [facility] Comment: EXPLANATORY NOTE: ? The Pap is a screening test for cervical cancer. It is ?? not a diagnostic test and is subject to false negative ?? and false positive results. It is most reliable when a ?? satisfactory sample, regularly obtained, is submitted ?? with relevant clinical findings and history, and when ?? the Pap result is evaluated along with historic and ?? current clinical information. ?? COMMENT: This Pap test has been evaluated with computer assisted technology. [facility] Behavioral Health Counselor: SEE COMMENT [facility] Comment: WAC, CT(ASCP) CT screening location: [address] ??[id number] HPV nRNA E6/E7 Not Detected Not Detected [facility] Comment: Methodology: Endocrinologist-Mediated Amplification This assay detects E6/E7 viral messenger RNA (mRNA) from 14 high-risk HPV types (16,18,31,33,35,39,45,51,52,56,58,59,66,68). ? Cervical sources are required for HPV testing. If a vaginal source from a patient who has had a total hysterectomy with removal of cervix was ?? submitted, please contact the testing laboratory for alternative testing options. ?? For additional information, please refer to http://Plan A Dr[employer] (InsideTracker)/faq/VPV967p7 (This link if provided for information/ educational purposes only.) Interpretation/Re sult: Negative for intraepithelial lesion or malignancy. [facility] LMP: 04/21/22 [facility] Neisseria gonorrhoeae RNA, TMA, Urogenital NOT DETECTED NOT DETECTED [facility] Prev. BX: NONE GIVEN [facility] Prev. PAP: NONE GIVEN [facility] SOURCE: None given [facility] Statement Of Adequacy: SEE COMMENT [facility] Comment: Satisfactory for evaluation. Endocervical/transformation zone component present. Trichomonas vaginalis, QL, TMA, PAP Vial NOT DETECTED NOT DETECTED [facility] Comment: The analytical performance characteristics of this assay have been determined by [email or web address]. The modifications have not been cleared or approved by the FDA. This assay has been validated pursuant to the CLIA regulations and is used for clinical purposes. ?? For additional information, please refer to http://Plan A Drink.[employer] (InsideTracker)/ faq/Trichomonastma (This link is being provided for information/ educational purposes only.) ?? 05/02/2022 11:1 2 AM EDT Monisha Stevens CNM LAB PATHOLOGY ORDERABLES Final Result [facility] [address] from Last 3 Months or Most Recently Relevant to Health Maintenance Insurance [facility] Care Teams Logging Truck Driver Relationship Specialty Start Date End Date Hilda Porter MD [address] [place] [phone] PCP - General Family Medicine 04/17/16
--- OUTSIDE RECORDS SUMMARY | 2024-12-11 10:13 | XMS_ITS | Encounter Summary ---
Author Organization [employer] Address [address] [facility] 7t [place] [address] Care Team Providers Care Hostess Cashier Name Role Phone Hilda Porter MD Primary Care Provider [phone] Reason for Referral * Consultation (Routine) - Authorized Specialty Diagnoses / Procedures Referred By Contac t Referred To Contact Neurology Diagnoses Weakness of both lower extremities Hilda Porter MD [address] [place] [address] Phone: tel: fax: [facility] Neurology [address] [facility] 3rd Floor [address] [place], [place] Phone: tel: fax: Referral ID Status Reason Start Date Expiration Date Visits Requested Visits Authorized [id number] Authorized Specialty Services Required 11/13/2024 11/13/2025 1 1 Encounter Details Date Type Department Care Team ([facility] st Contact Info) Description 11/13/2024 Orders Only [facility] MED & PEDS [address] [place] [address] Hilda Porter MD [address] [place] [address] Weakness of both lower extremities (Primary Dx) Social History Tobacco Use Types Packs/Day Years [...] as of this encounter Plan of Treatment Scheduled Referrals Name Type Priority Associated Diagnoses Orde r Schedule Referral to Neurology Outpatient Referral Routine Weakness of both lower extremities Expected: 11/13/2024 (Approximate), Expires: 11/13/2025 documented as of this encounter Visit Diagnoses Diagnosis Weakness of both lower extremities- Primary documented in this encounter Care Teams Hostess Cashier Relationship Specialty Start Date End Date Hilda Porter MD [address] [place] [phone] PCP - General Family Medicine 04/17/16 documented as of this encounter
--- OUTSIDE RECORDS SUMMARY | 2024-12-11 10:13 | XMS_ITS | Encounter Summary ---
Author Organization [employer] Address [address] [place] [address] Care Team Providers Care Roll Up Machine Operator Name Role Phone Hilda Porter MD Primary Care Provider [phone] Reason for Referral * Consultation (Routine) - Authorized Specialty Diagnoses / Procedures Referred By Contac t Referred To Contact Rheumatology Diagnoses Positive ELIZ (antinuclear antibody) Hilda Porter MD [address] [place] [address] Phone: tel: fax: [facility] [address] [place] [address] Phone: tel: fax: Referral ID Status Reason Start Date Expiration Date Visits Requested Visits Authorized [id number] Authorized Specialty Services Required 11/13/2024 11/13/2025 1 1 Encounter Details Date Type Department Care Team (Late st Contact Info) Description 11/13/2024 Orders Only [facility] [address] [place] [address] Hilda Porter MD [address] [place] [address] Positive ELIZ (antinuclear antibody) (Primary Dx) Social History Tobacco Use Types [...] Scheduled Referrals Name Type Priority Associated Diagnoses Order Schedule Referral to Rheumatology Outpatient Referral Routine Positive ELIZ (antinuclear antibody) Expected: 11/13/2024 (Approximate), Expires: 11/13/2025 documented as of this encounter Visit Diagnoses Diagnosis Positive ELIZ (antinuclear antibody)- Primary Other and unspecified nonspecific immunological findings documented in this encounter Care Teams Roll Up Machine Operator Relationship Specialty Start Date End Date Hilda Porter MD [address] [place] [phone] PCP - General Family Medicine 04/17/16 documented as of this encounter
[2024-12-11 14:23] LABS: Rheumatoid Factor < 13.0 IU/mL (<15.0)
[2024-12-11 14:45] LABS: Vitamin D 25-OH Total 16.9 ng/mL (>30)
[2024-12-12 08:21] LABS: HIV AB/AG Nonreactive (Nonreactive); HIV Num 1 0.06 S/CO (0.00-0.99); ~Hepatitis C Antibody Nonreactive (Nonreactive)
== END 2024-12-11 09:26 | disposition home or self-care (01) ==
LOC: HO.CHCLDS 09:25
PROVIDERS: Visit Provider Student in an Organized Health Care Education/Training Program
DX: Z11.3 Encounter for screening for infections with a predominantly sexual mode of transmission (principal); R76.8 Other specified abnormal immunological findings in serum
CPT/HCPCS: 36415; 82306; 86431; 86803; 87389